=== PATIENT | male | born 1985 ===

== ENCOUNTER 2018-08-14 16:38 | Emergency (ER) | payer MEDICAID ==
[2018-08-14 16:46] VITALS: TEMP 97.9
[2018-08-14] MEDS ORDERED: KETOROLAC TROMETHAMINE 30 MG/ML SOL IV ONE (16:48)
[2018-08-14] MEDS ORDERED: LORAZEPAM 2 MG/ML 10ML MDV 2 MG/ML VIAL IV ONE (16:49)
[2018-08-14] MEDS ORDERED: KETOROLAC TROMETHAMINE 30 MG/ML SOL ONE (16:58)
[2018-08-14] MEDS ORDERED: LORAZEPAM 2 MG/ML SOL ONE (16:59)
[2018-08-14 17:12] LABS: INR 1.04 (0.86-1.12)
[2018-08-14 17:57] VITALS: RESP 18
[2018-08-14 17:58] VITALS: O2SAT 98
[2018-08-14 17:59] VITALS: BP 112/66; PULSE 89
== END 2018-08-14 17:40 | disposition home or self-care (01) | DRG 880 ==
LOC: ED 16:38
DX: F41.9 Anxiety disorder, unspecified (principal)
CPT/HCPCS: 84484; 85610; 93005; 96374; 96375; 99283; 99284; J1885; J2060

== ENCOUNTER 2018-08-19 10:37 | Emergency (ER) | payer OTHER, MEDICAID ==
[2018-08-19 11:08] VITALS: TEMP 96.4
[2018-08-19] MEDS ORDERED: IBUPROFEN 400 MG PO PRN (12:59)
[2018-08-19] MEDS ORDERED: ALPRAZOLAM PO PRN (12:59)
[2018-08-19 13:15] VITALS: BP 123/73; PULSE 67; RESP 18; O2SAT 97
== END 2018-08-19 13:10 | disposition home or self-care (01) | DRG 563 ==
LOC: ED 10:37
DX: S83.422A Sprain of lateral collateral ligament of left knee, initial encounter (principal); S76.112A Strain of left quadriceps muscle, fascia and tendon, initial encounter
CPT/HCPCS: 73560; 99283; L1830